=== PATIENT | female | born 1950 | race Caucasian/White ===

== ENCOUNTER 2022-08-09 12:00 | Observation (INO) ==
[2022-08-09] MEDS ORDERED: Morphine Sulfate 2 MG/ML SYRINGE IVP ONE (12:50)
[2022-08-09 13:00] LABS: Basophils % 0.5 %; Eosinophils # 0.1 K/mcL (0.0-0.6); Eosinophils % 0.7 %; Hematocrit 37.3 % (35.3-44.9); Hemoglobin 12.4 g/dL (11.5-15.4); Immature Granulocytes % 0.6 % (0-4); Lymphocytes # 0.8 K/mcL (0.6-4.6); Lymphocytes % 8.7 %; Mean Corpuscular HGB Conc 33.2 g/dL (31.6-35.5); Mean Corpuscular Hemoglobin 29.7 pg (28.0-33.3); Mean Corpuscular Volume 89.2 fL (83.0-100.0); Mean Platelet Volume 9.4 fL (9.4-12.4); Monocytes # 0.5 K/mcL (0.0-1.3); Monocytes % 5.2 %; Neutrophils # 7.3 K/mcL (1.6-8.9); Platelet Count 260 K/mcL (140-400); Red Blood Count 4.18 M/mcL (3.82-4.97); Red Cell Distribution Width 12.2 % (11.5-14.5); Segmented Neutrophils % 84.3 %; White Blood Count 8.6 K/mcL (4.3-11.1)
[2022-08-09 13:08] LABS: Prothrombin Time 10.9 Seconds (9.4-12.1)
[2022-08-09 13:52] LABS: BUN/Creatinine Ratio 17 (6-26); Blood Urea Nitrogen 15 mg/dL (8-23); Calcium 10.3 mg/dL (8.6-10.3); Carbon Dioxide 25 mEq/L (23-29); Chloride 105 mEq/L (98-107); Glucose 101 mg/dL (70-105); Osmolality,Calculated 289 (280-300); Potassium 4.2 mEq/L (3.5-5.1); Sodium 139 mEq/L (136-145); Troponin I < 0.03 ng/mL (< 0.04)
[2022-08-09] MEDS ORDERED: Aspirin 81 MG TAB.CHEW PO ONE (14:46)
[2022-08-09] MEDS ORDERED: Naloxone 0.4 MG/ML INJ IVP PRN (15:08)
[2022-08-09] MEDS ORDERED: Nitroglycerin 0.4 MG TAB.SUBL SL PRN (15:08)
[2022-08-09] MEDS ORDERED: Morphine Sulfate 2 MG/ML SYRINGE IVP PRN (15:08)
[2022-08-09] MEDS ORDERED: ALPRAZolam 0.25 MG TABLET PO PRN (15:57)
[2022-08-09 23:25] VITALS: PULSE 62
[2022-08-10 01:07] LABS: Basophils # 0.1 K/mcL (0.0-0.2); Eosinophils # 0.2 K/mcL (0.0-0.6); Hematocrit 35.3 % (35.3-44.9); Hemoglobin 11.6 g/dL (11.5-15.4); Immature Granulocytes % 0.2 % (0-4); Lymphocytes # 1.2 K/mcL (0.6-4.6); Lymphocytes % 24.6 %; Mean Corpuscular HGB Conc 32.9 g/dL (31.6-35.5); Mean Corpuscular Hemoglobin 29.4 pg (28.0-33.3); Mean Corpuscular Volume 89.6 fL (83.0-100.0); Mean Platelet Volume 9.4 fL (9.4-12.4); Monocytes # 0.5 K/mcL (0.0-1.3); Monocytes % 10.8 %; Platelet Count 236 K/mcL (140-400); Red Blood Count 3.94 M/mcL (3.82-4.97); Red Cell Distribution Width 12.2 % (11.5-14.5); Segmented Neutrophils % 59.4 %
[2022-08-10 01:29] LABS: BUN/Creatinine Ratio 14 (6-26); Blood Urea Nitrogen 13 mg/dL (8-23); Calcium 9.3 mg/dL (8.6-10.3); Carbon Dioxide 27 mEq/L (23-29); Chloride 106 mEq/L (98-107); Chol/HDL Ratio 3.6 (0-4.9); Cholesterol 180 mg/dL (< 200); Glucose 100 mg/dL (70-105); HDL Cholesterol 50 mg/dL (40-59); LDL Cholesterol,Calculated 111 mg/dL (< 100); Magnesium 2.1 mg/dL (1.6-2.6); Osmolality,Calculated 288 (280-300); Sodium 139 mEq/L (136-145); Triglycerides 93 mg/dL (< 150)
[2022-08-10 01:30] LABS: Troponin I < 0.03 ng/mL (< 0.04)
[2022-08-10] MEDS ORDERED: Regadenoson 0.4 MG/5 ML SYRINGE IVP ONE (05:59)
[2022-08-10] MEDS ORDERED: Aspirin 81 MG TAB.CHEW PO SCH (09:00)
[2022-08-10 11:02] VITALS: BP 114/63; TEMP 98.3; O2SAT 96
[2022-08-10 11:42] LABS: Estimated Average Glucose 105 mg/dl; Hemoglobin A1C 5.3 %
== END 2022-08-10 14:27 | disposition home or self-care (01) ==
LOC: 3BNU 12:00 → EMEROOARM 12:00 → SUATTDRO 15:58 → 3BNU 16:44
PROVIDERS: ADMIT Internal Medicine; ATTEND Internal Medicine